=== PATIENT | female | born 1985 | race Caucasian/White ===

== ENCOUNTER 2018-09-06 10:54 | Emergency (ER) | payer SELFPAY ==
[2018-09-06] MEDS ORDERED: Azithromycin 250 MG TAB ONE (12:14)
--- NOTE | 2018-09-06 19:44 | RAD ---
PORTABLE CHEST 09/06/18 An AP portable film at 1132 shows a normal sized heart and clear lungs. There is no sign of pneumonia or pleural fluid. There is no congestive change. The trachea is midline. IMPRESSION: No acute thoracic findings. POS: HOME
== END 2018-09-06 12:18 | disposition home or self-care (01) ==
LOC: BURERS 10:54
DX: J20.9 Acute bronchitis, unspecified (principal); F17.210 Nicotine dependence, cigarettes, uncomplicated
CPT/HCPCS: 71045